=== PATIENT | male | born 1990 | race Hispanic/Latino ===

== ENCOUNTER 2016-11-26 02:57 | Emergency (ER) | payer OTHER ==
[2016-11-26 03:13] VITALS: BP 146/90; PULSE 118; RESP 20; TEMP 98.9; O2SAT 98
--- NOTE | 2016-11-26 03:26 | ED PDOC ---
HPI: General Adult Time Seen by Provider: 11/26/16 03:22 Chief Complaint (Nursing): Trauma Chief Complaint (Provider): fall History Per: Patient Additional Complaint(s): Patient was at a friend's house when he fell through the floor sustaining abrasions to right flank region and left forearm. Patient landed on his feet, he did not sustain LOC or head injury. He is not sure of last tetanus. Past Medical History Reviewed: Historical Data, Nursing Documentation, Vital Signs Vital Signs: Last Vital Signs Temp 98.9 F 11/26/16 03:04 Pulse 118 H 11/26/16 03:04 Resp 20 11/26/16 03:04 BP 146/90 11/26/16 03:04 Pulse Ox 98 11/26/16 03:34 - Medical History PMH: No Chronic Diseases - Surgical History Surgical History: Appendectomy Other surgeries: Left knee surgery - Family History Family History: States: No Known Family Hx - Living Arrangements Living Arrangements: With Friends/Others - Social History Current smoker - smoking cessation education provided: No Alcohol: Social Drugs: Denies - Immunization History Hx Tetanus Toxoid Vaccination: No (not sure of last tetanus) - Home Medications Home Medications: Ambulatory Orders Medication Instructions Recorded Cephalexin [Keflex] 500 mg PO TID #21 capsule 11/26/16 - Allergies Allergies/Adverse Reactions: Allergies Allergy/AdvReac Type Severity Reaction Status Date / Time No Known Allergies Allergy Verified 11/26/16 03:22 Review of Systems ROS Statement: Except As Marked, All Systems Reviewed And Found Negative Skin: Positive for: Other (abrasions to right flank region and left foream, s/p fall) Physical Exam - Reviewed Nursing Documentation Reviewed: Yes Vital Signs Reviewed: Yes - Physical Exam Appears: Positive for: Well, Non-toxic, No Acute Distress Head Exam: Positive for: ATRAUMATIC, NORMAL INSPECTION Skin: Positive for: Normal Color Eye Exam: Positive for: Normal appearance Cardiovascular/Chest: Positive for: Regular Rate, Rhythm Respiratory: Positive for: Normal Breath Sounds Extremity: Positive for: Normal ROM, Other (abrasion noted to palmar aspect of left wrist, no active bleeding, N/V intact, full rom of left wrist, 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 Wounds were dressed with bacitracin and non- stick gauze, N/V intact s/p placement. Patient given rx keflex and wound care instructions. Disposition - Clinical Impression Clinical Impression: Abrasions of multiple sites, Accidental fall, Requires a booster tetanus - Patient ED Disposition Is Patient to be Admitted: No Counseled Patient/Family Regarding: Diagnosis, Need For Followup, Rx Given - Disposition Referrals: [facility] [Outside] Disposition: Routine/Home Disposition Time: 03:31 Condition: STABLE Additional Instructions: Wash wounds daily with soap and water, pat dry and apply neosporin once per day. Take antibiotics as directed to completion. Tylenol or advil for pain as needed. Have wound re-checked in 2-3 days. Prescriptions: Cephalexin [Keflex] 500 mg PO TID #21 capsule Instructions: Diphtheria/Acellular Pertussis/Tetanus Booster Vaccine (Tdap) ( Injection), Abrasion (ED) Forms: [employer] (Chinese)
== END 2016-11-26 04:10 | disposition home or self-care (01) ==
LOC: H.ER 02:57
DX: S30.811A Abrasion of abdominal wall, initial encounter (principal); S50.812A Abrasion of left forearm, initial encounter; W13.3XXA Fall through floor, initial encounter; Y92.009 Unspecified place in unspecified non-institutional (private) residence as the place of occurrence of the external cause; Z23 Encounter for immunization